=== PATIENT | female | born 1960 | race African-American/Black ===

== ENCOUNTER 2021-05-17 22:50 | Emergency (ER) | payer OTHER ==
[~2021-05-17] VITALS: Ht 157.5 cm; Wt 115.7 kg
[2021-05-17] MEDS ORDERED: IBUPROFEN 600600 M1 PO (23:18)
[2021-05-17] MEDS ORDERED: NEURONTIN300 MG PO (23:18)
[2021-05-17] MEDS ORDERED: OMEPRAZOLE40 MG PO (23:19)
[2021-05-17] MEDS ORDERED: ACETAMINOPHEN650 M5 PO (23:19)
[2021-05-17] MEDS ORDERED: NASONEX17 GM NASAL (23:20)
[2021-05-17] MEDS ORDERED: BASAGLAR K100 UNIT/1 SUBQ (23:20)
[2021-05-17] MEDS ORDERED: CETIRIZINE1 MG/1 ML PO (23:20)
[2021-05-17] MEDS ORDERED: OZEMPIC0.25 MG/0. SUBQ (23:21)
[2021-05-17] MEDS ORDERED: LEVO-T100 MCG PO (23:21)
[2021-05-17] MEDS ORDERED: METFORMIN HCL500 M3 PO (23:22)
[2021-05-17] MEDS ORDERED: LISINOPRIL20 MG PO (23:22)
[2021-05-17] MEDS ORDERED: LIPITOR 40 MG T40 M1 PO (23:22)
[2021-05-17] MEDS ORDERED: FUROSEMIDE 40 M40 MG PO (23:22)
[2021-05-18 00:17] LABS: ABSOLUTE NEUTROPHILS 4.9 thou/uL (1.4-8.2); BASOPHILS 0.9 % (0.0-2.0); EOSINOPHILS 2.5 % (0.0-3.0); HEMATOCRIT 38.4 % (37.0-47.0); HEMOGLOBIN 12.7 gm/dL (12.0-15.0); LYMPHOCYTES 29.8 % (24.0-44.0); MCH 28.7 pg (26.0-34.0); MONOCYTES 7.7 % (1.0-8.0); PLATELET COUNT 332 thou/uL (150-400); POLYS 59.1 % (36.0-66.0); RBC 4.41 mil/uL (4.20-5.00); RDW 14.7 % (10.5-14.5); WBC 8.4 thou/uL (4.0-11.0)
[2021-05-18 00:20] LABS: CALCIUM 8.9 mg/dL (8.5-10.1); POTASSIUM 4.6 mmol/L (3.5-5.1)
[2021-05-18 00:59] VITALS: BP 167/84
--- NOTE | 2021-05-18 15:13 | EKG ---
[address] [place] [address] ELECTROCARDIOGRAM REPORT Name: CARLOSPRINCELizbeth WILL Room #: DEP [facility]#: [id number] Admission: 05/17/21 Attend Phys: Discharge: 05/18/21 Date of : 58 Report #: [id number] [facility] ED Test Date: 2021-05-17 Test Time: 23:00:20 Pat Name: PRINCE GONZALEZ Department: Room: Gender: F [employer]liance [employer]: ASAF : 1960 Requested By: Abel Fisher Order Number: [id number] MD: Miguel Casper Measurements Intervals [place] Rate: 93 P: 48 MA: 147 QRS: -19 QRSD: 96 T: 83 QT: 351 QTc: 437 Interpretive Statements Sinus rhythm Low voltage, precordial leads Abnormal R-wave progression, early transition Left ventricular hypertrophy Baseline wander in lead(s) V4,V5 No previous ECG available for comparison Electronically Signed On 05-18-2021 15:13:42 CDT by Miguel Casper [email or web address] <ELECTRONICALLY SIGNED> By: Miguel Casper MD, [facility] 05/18/21 151 99 99 Miguel Casper MD, FAC /EPI
== END 2021-05-18 01:59 | disposition home or self-care (01) ==
LOC: ER 22:50
PROVIDERS: Emergency Medicine
DX: R07.89 Other chest pain (principal); M12.812 Other specific arthropathies, not elsewhere classified, left shoulder; E11.618 Type 2 diabetes mellitus with other diabetic arthropathy; I11.0 Hypertensive heart disease with heart failure; I50.9 Heart failure, unspecified; E78.5 Hyperlipidemia, unspecified; E03.9 Hypothyroidism, unspecified; Z90.710 Acquired absence of both cervix and uterus; Z79.891 Long term (current) use of opiate analgesic; Z79.4 Long term (current) use of insulin; Z79.899 Other long term (current) drug therapy; Z79.1 Long term (current) use of non-steroidal anti-inflammatories (NSAID)